=== PATIENT | female | born 2000 | race Caucasian/White ===

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

== ENCOUNTER 2018-01-09 02:31 | Emergency (ER) | payer OTHER ==
[2018-01-09] MEDS ORDERED: KETOROLAC 30 MG/ML 1 ML VIAL IM STA (03:10)
--- NOTE | 2018-01-09 03:21 | ED ---
Back Pain HPI - General Source: patient, RN notes reviewed Mode of arrival: ambulatory Limitations: no limitations <Teresita Cruz - Last Filed: 01/09/18 03:10> <Ping Diaz - Last Filed: 01/09/18 03:58> - General Chief Complaint: Back Pain/Injury Stated Complaint: Back pain Time Seen by Provider: 01/09/18 02:56 - History of Present Illness Initial Comments: This is a 17-year-old female with history of chronic pain who presents to the emergency department with chief complaint of acute right-sided low back pain. Patient states that at 1 PM she bent over to grab a smoothie out of the refrigerator. She states that she felt a sudden sharp pain in her right lower back. Patient reports a history of chronic hip pain. She denies saddle paresthesias or loss of bladder or bowel function. She denies IV drug use. She denies urinary symptoms such as dysuria or hematuria. Denies fevers or chills, abdominal pain, nausea or vomiting. (Teresita Cruz) - Related Data Home Medications Medication Instructions Recorded Confirmed Norgestimate-Ethinyl Estradiol 1 each PO DAILY 09/07/14 09/07/14 [Mononessa 28 Tablet] Previous Rx's Medication Instructions Recorded Dicyclomine [Bentyl] 10 mg PO TID #30 capsule 09/07/14 Ondansetron Odt [Zofran Odt] 4 mg PO Q8HR PRN #10 tab 09/07/14 Ranitidine HCl [Zantac] 150 mg PO BID #30 tab 09/07/14 Ibuprofen 600 mg PO Q6HR #20 tablet 01/09/18 Allergies Allergy/AdvReac Type Severity Reaction Status Date / Time No Known Allergies Allergy Verified 01/09/18 02:35 Review of Systems ROS Other: All systems not noted in ROS Statement are negative. <Teresita Cruz - Last Filed: 01/09/18 03:10> ROS Other: All systems not noted in ROS Statement are negative. <Ping Diaz - Last Filed: 01/09/18 03:58> ROS Statement: Those systems with pertinent positive or pertinent negative responses have been documented in the HPI. Past Medical History Past Medical History: No Reported History Additional Past Medical History / Comment(s): back pain, gastritis, fibromyalgia. History of Any Multi-Drug Resistant Organisms: None Reported Past Surgical History: No Surgical Hx Reported Past Psychological History: Anxiety, Bipolar, Depression Smoking Status: Never smoker Past Alcohol Use History: None Reported Past Drug Use History: None Reported <Teresita Cruz - Last Filed: 01/09/18 03:10> General Exam Limitations: no limitations Back exam: Present: normal inspection, full ROM, tenderness (tenderness on palpation of right SI joint.). Absent: paraspinal tenderness, vertebral tenderness <NancyTeresita Basil - Last Filed: 01/09/18 03:10> <Ping Diaz - Last Filed: 01/09/18 03:58> - General Exam Comments Initial Comments: General: Awake and alert, well-developed; in no apparent distress. Patient lying comfortably on ED stretcher. HEENT: Head atraumatic, normocephalic. Pupils are equal, round and reactive to light. Extraocular movements intact. Oropharynx moist without erythema or exudate. Neck: Supple. Normal ROM. Cardiovascular: Regular rate and rhythm. No murmurs, rubs or gallops. Chest symmetrical. Pedal pulses are 2+ equal and palpable bilaterally. Respiratory: Lungs clear to auscultation bilaterally. No wheezes, rales or rhonchi. Normal respiratory effort with no use of accessory muscles. Musculoskeletal: Normal ROM, no tenderness bilateral upper and lower extremities. Ambulating normally. Skin: [place], warm and dry without rashes or lesions. Neurological: Alert and oriented x3. CN II-XII grossly intact. Speech is fluent and answers are appropriate. No focal neuro deficits. Psychiatric: Normal mood and affect. No overt signs of depression or anxiety noted. (NancyMinh wrightTeresita Basil) Vital Signs 01/09/18 02:32 Temperature 98.9 F Pulse Rate 83 Respiratory 24 Rate Blood Pressure 114/80 O2 Sat by Pulse 100 Oximetry Medical Decision Making <Teresita Cruz - Last Filed: 01/09/18 03:10> <Ping Diaz - Last Filed: 01/09/18 03:58> - Medical Decision Making This is a 17-year-old female who presents to the emergency department with chief complaint of acute low back pain. Patient denies any falls, injuries or trauma. She reports feeling a sharp pain in her right low back while bending forward to grab a smoothie from the refrigerator this evening. She denies saddle paresthesias or loss of bladder or bowel function. Denies numbness or tingling, IV drug use. Tenderness on palpation of right SI joint region. Pulses are 2+ equal and palpable bilaterally. Patient is moving all extremities normally. Patient will be started on a course of anti- inflammatories. Vitals are stable and she is in no acute distress. She will be discharged home at this time. She is in agreement and voices understanding. All questions were answered. (Teresita Cruz) I was available for consultation in the emergency department. The history and physical exam were done by the midlevel provider. I was consulted for this patient's care. I reviewed the case with the midlevel provider and based on their presentation of the patient, I agree with the assessment, medical decision making and plan of care as documented. (Ping Diaz) Disposition Is patient prescribed a controlled substance at d/c from ED?: No Time of Disposition: 03:27 <Teresita Cruz - Last Filed: 01/09/18 03:10> <Ping Diaz - Last Filed: 01/09/18 03:58> Clinical Impression: Low back pain Disposition: HOME SELF-CARE Condition: Good Instructions: Acute Low Back Pain (ED) Additional Instructions: Please take medications as prescribed. Please follow up with primary care provider within 1-2 days. Return to emergency department if symptoms should worsen or any concerns arise. Prescriptions: Ibuprofen 600 mg PO Q6HR #20 tablet Referrals: Tracy Perez MD [Primary Care Provider] - 1-2 days
[2018-01-09 04:05] VITALS: BP 126/73; PULSE 68; RESP 19; TEMP 98
== END 2018-01-09 03:55 | disposition home or self-care (01) ==
LOC: EC 02:31
DX: M54.5 Low back pain (principal); Z79.3 Long term (current) use of hormonal contraceptives
CPT/HCPCS: 99283; 96372; J1885

== ENCOUNTER → 2018-08-14 | Outpatient (CLI) | payer OTHER ==
[2018-08-14 16:09] LABS: Basophils % (A) 1 %; Eosinophils # (A) 0.1 k/uL (0-0.7); Eosinophils % (A) 2 %; HCT 38.2 % (34.0-46.0); HGB 12.5 gm/dL (11.4-16.0); Lymphocytes # (A) 2.2 k/uL (1.0-4.8); Lymphocytes % (A) 43 %; MCH 30.1 pg (25.0-35.0); MCHC 32.8 g/dL (31.0-37.0); Mean Platelet Volume 7.7; Monocytes # (A) 0.3 k/uL (0-1.0); Monocytes % (A) 6 %; Neutrophils # (A) 2.3 k/uL (1.3-7.7); Neutrophils % (A) 46 %; Platelet Count 266 k/uL (150-450); RBC 4.16 m/uL (3.80-5.40); RDW 12.1 % (11.5-15.5)
[2018-08-14 18:34] LABS: Erythrocyte Sedimentation Rate 7 mm/hr (0-20)
[2018-08-15 04:11] LABS: Protein, Total 6.6 g/dL (6.2-8.2); Rheumatoid Factor 8 IU/mL (0-15)
[2018-08-15 04:12] LABS: ALT 11 U/L (8-44); AST 16 U/L (13-35); Alkaline Phosphatase 63 U/L (41-126); C Reactive Protein <0.4 mg/dL (0.0-0.8); Calcium 9.4 mg/dL (8.7-10.3); Carbon Dioxide 24.2 mmol/L (21.6-31.8); Chloride 105 mmol/L (96-109); Cholesterol 214 mg/dL (0-200); Creatine Kinase 20 U/L (26-186); Globulin 2.1 g/dL (1.6-3.3); Glucose 102 mg/dL (70-110); LDL Cholesterol,Calculated 116.4 mg/dL (0.0-131.0); Potassium 4.1 mmol/L (3.5-5.5); Sodium 139 mmol/L (135-145); Total Bilirubin 0.3 mg/dL (0.3-1.2); Total Protein 6.5 g/dL (6.2-8.2); Vitamin D 25 Hydroxy 91.2 ng/mL (30.0-100.0)
[2018-08-15 12:44] LABS: Albumin 4.05 g/dL (3.80-4.90); Gamma Globulin 0.86 g/dL (0.70-1.50)
== END | disposition home or self-care (01) ==
LOC: LABWHC1 15:29
PROVIDERS: ATTEND Nurse Practitioner Acute Care
DX: E55.9 Vitamin D deficiency, unspecified (principal); G62.9 Polyneuropathy, unspecified; M79.10 Myalgia, unspecified site
CPT/HCPCS: 36415; 80053; 80061; 82085; 82306; 82550; 82607; 84165; 84207; 84439; 84443; 84481; 85025; 85652; 86038; 86140; 86431

== ENCOUNTER → 2018-08-14 | Outpatient (CLI) | payer OTHER ==
--- NOTE | 2018-08-15 12:18 | ECHOF ---
Referral Reason:R00.0 Tachycardia, unspecified MEASUREMENTS -------- HEIGHT: 175.3 cm WEIGHT: 81.6 kg BP: 108/66 RVIDd: 2.9 cm (< 3.3) IVSd: 1.0 cm (0.6 - 1.1) LVIDd: 4.2 cm (3.9 - 5.3) LVPWd: 1.0 cm (0.6 - 1.1) IVSs: 1.3 cm LVIDs: 2.8 cm LVPWs: 1.3 cm LA Diam: 2.6 cm (2.7 - 3.8) LAESV Index (A-L): 22.17 ml/m Ao Diam: 3.4 cm (2.0 - 3.7) AV Cusp: 2.3 cm (1.5 - 2.6) EPSS: 0.3 cm MV E Shaji: 0.67 m/s MV DecT: 157 ms MV A Shaji: 0.54 m/s MV E/A Ratio: 1.23 RAP: 5.00 mmHg RVSP: 17.58 mmHg MV EF SLOPE: 135.65 mm/s (70 - 150) MV EXCURSION: 2.25 cm (> 18.000) FINDINGS -------- Sinus rhythm. This was a technically good study. The left ventricular size is normal. Left ventricular wall thickness is normal. Overall left vent ricular systolic function is normal with, an EF between 60 - 65 %. The right ventricle is normal in size. Normal LA size by volume 22+/-6 ml/m2. The right atrium is normal in size. The aortic valve is trileaflet and appears structurally normal. The mitral valve is normal. Mild tricuspid regurgitation present. Right ventricular systolic pressure is normal at < 35 mmHg. Trace/mild (physiologic) pulmonic regurgitation. The aortic root size is normal. Normal inferior vena cava with normal inspiratory collapse consistent with estimated right atrial pre ssure of 5 mmHg. There is no pericardial effusion. CONCLUSIONS -------- 1. Sinus rhythm. 2. This was a technically good study. 3. The left ventricular size is normal. 4. Left ventricular wall thickness is normal. 5. Overall left ventricular systolic function is normal with, an EF between 60 - 65 %. 6. The right ventricle is normal in size. 7. Normal LA size by volume 22+/-6 ml/m2. 8. The right atrium is normal in size. 9. The aortic valve is trileaflet and appears structurally normal. 10. The mitral valve is normal. 11. Mild tricuspid regurgitation present. 12. Right ventricular systolic pressure is normal at < 35 mmHg. 13. Trace/mild (physiologic) pulmonic regurgitation. 14. The aortic root size is normal. 15. Normal inferior vena cava with normal inspiratory collapse consistent with estimated right atrial pressure of 5 mmHg. 16. There is no pericardial effusion. CRITICAL CARE PARAMEDIC: BLADE Montalvo
== END | disposition home or self-care (01) ==
LOC: RADECHMAIN 14:46
PROVIDERS: ATTEND Internal Medicine
DX: I07.1 Rheumatic tricuspid insufficiency (principal)
CPT/HCPCS: 93306

== ENCOUNTER → 2018-10-01 | Outpatient (CLI) | payer OTHER ==
--- NOTE | 2018-10-10 09:01 | P.PN ---
Progress Note - Text Progress Note Date: 10/10/18 REPORT ON THE EVENT MONITOR: Baseline EKG showed sinus rhythm. Patient remained in sinus rhythm or sinus tachycardia, throat, regarding. Rare APCs noted noted. No ventricular arrhythmias are detected. Patient complained of several symptoms including dizziness, chest pain, racing of her heart and shortness of breath and also nausea. The symptoms did not correlate with any cardiac events. Final impression: #1. Baseline rhythm is sinus #2. Episodes of sinus tachycar pérez #3. Rare APCs . #4. No ventricular arrhythmias. #5. Patient's symptoms did not correlate with cardiac events
--- NOTE | 2018-10-11 13:13 | EM ---
REPORT ON THE EVENT MONITOR: Baseline EKG showed sinus rhythm. Patient remained in sinus rhythm or sinus tachycardia, throat, regarding. Rare APCs noted noted. No ventricular arrhythmias are detected. Patient complained of several symptoms including dizziness, chest pain, racing of her heart and shortness of breath and also nausea. The symptoms did not correlate with any cardiac events. Final impression: #1. Baseline rhythm is sinus #2. Episodes of sinus tachycardia #3. Rare APCs . #4. No ventricular arrhythmias. #5. Patient's symptoms did not correlate with cardiac events MTDD
== END | disposition home or self-care (01) ==
LOC: RADECHMAIN 11:58
PROVIDERS: ATTEND Internal Medicine Cardiovascular Disease
DX: I49.1 Atrial premature depolarization (principal); R00.0 Tachycardia, unspecified
CPT/HCPCS: 93270